=== PATIENT | male | born 1985 | race Caucasian/White ===

== ENCOUNTER 2019-02-26 11:48 | Emergency (ER) | payer OTHER | END 2019-02-26 12:38 | disposition home or self-care (01) | LOC: MADERS 11:48 | DX: L03.115 Cellulitis of right lower limb (principal); F17.210 Nicotine dependence, cigarettes, uncomplicated | CPT/HCPCS: 99282 ==

== ENCOUNTER 2019-03-03 11:09 | Emergency (ER) | payer OTHER | END 2019-03-03 12:28 | disposition home or self-care (01) | LOC: MADERS 11:09 | DX: L03.115 Cellulitis of right lower limb (principal); F17.210 Nicotine dependence, cigarettes, uncomplicated; Z79.899 Other long term (current) drug therapy | CPT/HCPCS: 99283 ==

== ENCOUNTER 2020-12-25 13:45 | Emergency (ER) | payer OTHER ==
[2020-12-25] MEDS ORDERED: Ketorolac Tromethamine 30 MG/ML VIAL ONE (15:04)
[2020-12-25] MEDS ORDERED: Ondansetron ODT 4 MG TAB ONE (15:04)
== END 2020-12-25 16:19 | disposition home or self-care (01) ==
LOC: MADERS 13:45
DX: M54.42 Lumbago with sciatica, left side (principal); M62.830 Muscle spasm of back; R00.0 Tachycardia, unspecified; F17.210 Nicotine dependence, cigarettes, uncomplicated; Z79.899 Other long term (current) drug therapy
CPT/HCPCS: 72100; 96372; J1885; Q0162

== ENCOUNTER 2021-12-13 12:54 | Emergency (ER) | payer OTHER ==
[2021-12-13] MEDS ORDERED: Diazepam 10 MG/2 ML SYRINGE ONE (13:25)
== END 2021-12-13 13:45 | disposition home or self-care (01) ==
LOC: MADERS 12:54
DX: M62.830 Muscle spasm of back (principal); F17.210 Nicotine dependence, cigarettes, uncomplicated
CPT/HCPCS: 96372; 99283; J3360

== ENCOUNTER 2023-04-25 14:12 | Emergency (ER) | payer OTHER ==
[2023-04-25] MEDS ORDERED: Lidocaine 1% (PF) 30 ML VIAL ONE (14:32)
[2023-04-25] MEDS ORDERED: TETANUS, DIPHTHERIA TOX,ADULT (TDVAX) 0.5 ML VIAL IM ONE (14:52)
== END 2023-04-25 16:04 | disposition home or self-care (01) ==
LOC: MADERS 14:12
DX: S61.210A Laceration without foreign body of right index finger without damage to nail, initial encounter (principal); F17.210 Nicotine dependence, cigarettes, uncomplicated; W26.9XXA Contact with unspecified sharp object(s), initial encounter
CPT/HCPCS: 90471; 90714; 99282; J2001